=== PATIENT | male | born 1995 | race African-American/Black ===

== ENCOUNTER 2017-02-22 12:55 | Emergency (ER) | payer OTHER ==
[~2017-02-22] VITALS: Ht 172.7 cm; Wt 72.6 kg
[2017-02-22 13:05] VITALS: BP 136/66
[2017-02-22] MEDS ORDERED: IV NORMAL SALINE 1000ML BAG 1,000 ML IV ONE (13:30)
[2017-02-22] MEDS ORDERED: ONDANSETRON PF 4 MG/2 ML VIAL. IV ONE (13:30)
--- NOTE | 2017-02-22 14:18 | RAD ---
Portable AP upright view CXR: Clinical indications: Chest pain today. Comparison: August 17, 2016 Findings: No acute lung infiltrate or pleural effusion or pulmonary edema or lung mass or pneumothorax is seen. The heart size, pulmonary vasculature, mediastinum and both darcy are unremarkable. Impression: No acute radiographic abnormality is seen.
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
[2017-02-22 14:46] LABS: BASO # 0.1 x10^3/uL (0.0-0.2); BASO % 0 % (0-3); EOS % 0 % (0-3); HEMATOCRIT 51.6 % (39.0-53.0); HEMOGLOBIN 17.3 g/dL (13.0-17.5); LYMPH # 1.2 x10^3/uL (1.0-4.8); LYMPH % 6 % (24-48); MEAN CORPUSCULAR HEMOGLOBIN 31 pg (25-35); MEAN CORPUSCULAR HGB CONC 34 g/dL (31-37); MEAN CORPUSCULAR VOLUME 92 fL (79-100); MONO % 5 % (0-9); NEUT % 89 % (31-73); PLATELET COUNT 268 x10^3/uL (140-400); RED BLOOD COUNT 5.61 x10^6/uL (4.30-5.70); RED CELL DISTRIBUTION WIDTH 13.1 % (11.5-14.5)
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
[2017-02-22] MEDS ORDERED: CLON0.5T3 PO (15:17)
[2017-02-22] MEDS ORDERED: TRAZ50TA15 PO (15:17)
[2017-02-22 15:20] LABS: CALCIUM 10.2 mg/dL (8.5-10.1); CREATININE 1.4 mg/dL (0.7-1.3); GFR 76.7; POTASSIUM 3.3 mmol/L (3.5-5.1)
[2017-02-22 15:24] LABS: % BASOS 1 % (0-3)
[2017-02-22 15:25] LABS: PLT ESTIMATE ADEQUATE (ADEQUATE)
[2017-02-22 15:40] LABS: BARBITURATES NEG (NEG); BENZODIAZEPINES POS (NEG); CANNABINOIDS POS (NEG); COCAINE NEG (NEG); METHADONE NEG (NEG); OPIATES NEG (NEG); PHENCYCLIDINE NEG (NEG)
[2017-02-22 15:49] LABS: ETHANOL, URINE NEG (NEG)
[2017-02-22] MEDS ORDERED: POTASSIUM CHLORIDE 20 MEQ/15 ML ORAL LIQUID. PO ONE (16:30)
--- NOTE | 2017-02-23 12:57 | EKG ---
[facility] [address] [place] [address] Test Date: 2017-02-22 Test Time: 13:06:12 Pat Name: BRENNA OLIVEIRA Department: Room: Gender: Automotive General Sales Manager: : 1995 Requested By: AJ TALLEY Order Number: [id number] Reading MD: Measurements Intervals [place] Rate: 80 P: 38 CO: 150 QRS: 86 QRSD: 96 T: 46 QT: 364 QTc: 423 Interpretive Statements SINUS RHYTHM QRS(T) CONTOUR ABNORMALITY CONSIDER ANTEROLATERAL MYOCARDIAL DAMAGE POSSIBLY ABNORMAL ECG RI6.01 No previous ECG available for comparison
== END 2017-02-22 16:26 | disposition home or self-care (01) ==
LOC: ER 12:55
DX: S09.90XA Unspecified injury of head, initial encounter (principal); E87.6 Hypokalemia; F12.10 Cannabis abuse, uncomplicated; V89.2XXA Person injured in unspecified motor-vehicle accident, traffic, initial encounter; Y92.413 State road as the place of occurrence of the external cause; Y93.89 Activity, other specified; Y99.8 Other external cause status
CPT/HCPCS: 36415; 70450; 71010; 72125; 80048; 80305; 80320; 85007; 85027; 93005; 96361; 96374; 99285; J2405; J7030; G0480; G0481

== ENCOUNTER 2019-10-25 11:09 | Inpatient (IN) | payer OTHER ==
[~2019-10-25] VITALS: Ht 172.7 cm; Wt 75.4 kg
[~2019-10-25 11:09] MED LIST: CLON-77 PO; TRAZ-118 PO
[2019-10-25] MEDS ORDERED: MORPHINE SULFATE 10 MG/ML VIAL. IV STA ×2 (11:28→14:05)
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
[2019-10-25 11:50] LABS: BASO % 0 % (0-3); EOS % 1 % (0-3); HEMOGLOBIN 14.8 g/dL (13.0-17.5); LYMPH # 1.2 x10^3/uL (1.0-4.8); LYMPH % 17 % (24-48); MEAN CORPUSCULAR HEMOGLOBIN 31 pg (25-35); MEAN CORPUSCULAR HGB CONC 34 g/dL (31-37); MEAN CORPUSCULAR VOLUME 93 fL (79-100); MONO % 14 % (0-9); NEUT # 4.8 x10^3/uL (1.8-7.7); NEUT % 69 % (31-73); PLATELET COUNT 201 x10^3/uL (140-400); RED BLOOD COUNT 4.74 x10^6/uL (4.30-5.70); RED CELL DISTRIBUTION WIDTH 13.3 % (11.5-14.5)
[2019-10-25 11:59] LABS: PROTHROMBIN TIME PATIENT 12.4 SEC (11.7-14.0)
[2019-10-25] MEDS ORDERED: ONDANSETRON PF 4 MG/2 ML VIAL. IV ONE (12:00)
[2019-10-25] MEDS ORDERED: IV NORMAL SALINE 1000ML BAG 1,000 ML IV ONE (12:00)
[2019-10-25 12:26] LABS: CALCIUM 8.9 mg/dL (8.5-10.1); CREATININE 2.4 mg/dL (0.7-1.3); GFR 40.1; POTASSIUM 4.2 mmol/L (3.5-5.1)
[2019-10-25 12:31] LABS: ALBUMIN 3.6 g/dL (3.4-5.0); ALBUMIN/GLOBULIN RATIO 1.1 (1.0-1.7); TOTAL BILIRUBIN 0.6 mg/dL (0.2-1.0)
[2019-10-25 12:59] LABS: BILIRUBIN,URINE NEGATIVE (NEG); CLARITY,URINE CLEAR; COLOR,URINE YELLOW; NITRITE,URINE NEGATIVE (NEG); PROTEIN,URINE 100 mg/dL (NEG-TRACE); UROBILINOGEN,URINE 0.2 mg/dL (0.2 mg/dL)
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
[2019-10-25 13:31] LABS: BACTERIA,URINE 0 /HPF (0-FEW); SQUAMOUS EPITHELIAL CELL,UR OCC /LPF
[2019-10-25 13:58] LABS: CREATININE ISTAT 2.5 mg/dL (0.5-1.4); HEMOGLOBIN ISTAT 13.9 g/dL (14-18); ION CA ISTAT 1.18 mmol/L (1.13-1.32)
[2019-10-25 14:11] LABS: BARBITURATES NEG (NEG); BENZODIAZEPINES NEG (NEG); CANNABINOIDS POS (NEG); COCAINE NEG (NEG); METHADONE NEG (NEG); OPIATES POS (NEG); PHENCYCLIDINE NEG (NEG)
[2019-10-25 14:17] LABS: AMPHETAMINE/METHAMPHETAMINE NEG (NEG)
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
[2019-10-25] MEDS ORDERED: IV NORMAL SALINE 1000ML BAG 1,000 ML IV STA (15:18)
[2019-10-25] MEDS: MORPHINE SULFATE 4 MG/ML VIAL. IV PRN ×2 (17:21→19:28)
[2019-10-25] MEDS: IV NORMAL SALINE 1000ML BAG 1,000 ML IV SCH (17:21)
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
[2019-10-25 18:35] VITALS: BP 137/76
[2019-10-25 19:20] VITALS: BP 120/83
[2019-10-25] MEDS: ONDANSETRON PF 4 MG/2 ML VIAL. IV PRN ×2 (19:28→21:39)
[2019-10-25 23:25] VITALS: BP 112/64
[2019-10-26] MEDS: IV NORMAL SALINE 1000ML BAG 1,000 ML IV SCH ×2 (01:00→01:18)
[2019-10-26 03:25] VITALS: BP 122/85
[2019-10-26 07:47] VITALS: BP 150/78
[2019-10-26] MEDS ORDERED: FLU VAX QS 2019-20 (36MOS+)/PF 0.5 ML SYRINGE. VAX IM ONE (09:00)
[2019-10-26] MEDS: HYDROcodone/APAP 5/325MG 1 TAB TABLET PO PRN (09:13)
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
[2019-10-26] MEDS: ONDANSETRON PF 4 MG/2 ML VIAL. IV PRN (09:40)
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
[2019-10-26 10:31] LABS: BASO % 0 % (0-3); EOS % 1 % (0-3); HEMATOCRIT 43.6 % (39.0-53.0); HEMOGLOBIN 14.4 g/dL (13.0-17.5); LYMPH # 0.9 x10^3/uL (1.0-4.8); LYMPH % 16 % (24-48); MEAN CORPUSCULAR HEMOGLOBIN 31 pg (25-35); MEAN CORPUSCULAR HGB CONC 33 g/dL (31-37); MEAN CORPUSCULAR VOLUME 94 fL (79-100); MONO # 0.8 x10^3/uL (0.0-1.1); MONO % 14 % (0-9); NEUT # 4.1 x10^3/uL (1.8-7.7); NEUT % 69 % (31-73); PLATELET COUNT 187 x10^3/uL (140-400); RED BLOOD COUNT 4.63 x10^6/uL (4.30-5.70); RED CELL DISTRIBUTION WIDTH 13.2 % (11.5-14.5); WHITE BLOOD COUNT 5.9 x10^3/uL (4.0-11.0)
[2019-10-26 11:01] LABS: ALBUMIN 3.3 g/dL (3.4-5.0); CALCIUM 8.7 mg/dL (8.5-10.1); CREATININE 2.7 mg/dL (0.7-1.3); POTASSIUM 4.3 mmol/L (3.5-5.1); TOTAL BILIRUBIN 0.5 mg/dL (0.2-1.0); TOTAL PROTEIN 6.6 g/dL (6.4-8.2)
[2019-10-26 11:20] VITALS: BP 125/79
[2019-10-26] MEDS: HYDROmorphone 2 MG/ML VIAL IV PRN ×3 (13:13→21:27)
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
[2019-10-26 15:09] VITALS: BP 139/87
[2019-10-26 19:36] VITALS: BP 127/83
[2019-10-26] MEDS: ONDANSETRON PF 4 MG/2 ML VIAL. IVP PRN (20:43)
[2019-10-26] MEDS: silver sulfADIAZINE 1% CREAM 400GM JAR. TP SCH (21:27)
[2019-10-26 23:41] VITALS: BP 133/83
[2019-10-27 03:25] VITALS: BP 106/61
[2019-10-27] MEDS: ONDANSETRON PF 4 MG/2 ML VIAL. IVP PRN (06:03)
[2019-10-27] MEDS: HYDROmorphone 2 MG/ML VIAL IV PRN ×2 (06:03→10:51)
[2019-10-27 06:45] LABS: CALCIUM 8.6 mg/dL (8.5-10.1); CREATININE 2.5 mg/dL (0.7-1.3); GFR 38.3; POTASSIUM 3.9 mmol/L (3.5-5.1)
[2019-10-27 07:57] VITALS: BP 127/84
[2019-10-27] MEDS: silver sulfADIAZINE 1% CREAM 400GM JAR. TP SCH (09:37)
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
[2019-10-27 11:59] VITALS: BP 127/70
[2019-10-27] MEDS ORDERED: FLU VAX QS 2019-20 (36MOS+)/PF 0.5 ML SYRINGE. VAX IM ONE (14:15)
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
[2019-10-27] MEDS ORDERED: SILV20CR14 TP (16:14)
[2019-10-27] MEDS ORDERED: ACET325T9 PO (16:14)
--- NOTE | 2019-10-27 16:16 | DISCH ---
DISCHARGE INSTRUCTIONS Condition on Discharge Condition on Discharge: Stable Activity After Discharge Activity Instructions for Disc: Activity as tolerated Driving Instructions after Dis: Do not drive Diet after Discharge Diet after Discharge: Regular Liquid Texture: Thin Liquid Checks after Discharge Checks after discharge: Check blood press - daily Contacting the [facility] after DC Call your doctor for: If your condition worsens Warfarin Follow-Up Warfarin Follow UP: SEE PCP BRIAN STOVER MD Oct 27, 2019 16:16
[2019-10-27] MEDS: HYDROcodone/APAP 5/325MG 1 TAB TABLET PO PRN (17:03)
--- NOTE | 2019-10-27 17:18 | NUR ---
Pt discharged to home with family. Discussed discharge instructions with pt and family. Verbalized understanding.
== END 2019-10-27 17:16 | disposition home or self-care (01) | DRG 155 ==
LOC: ER 11:09 → 6 SOUTH 15:27
PROVIDERS: ADMIT Internal Medicine; ATTEND Internal Medicine
DX: S02.2XXA Fracture of nasal bones, initial encounter for closed fracture (principal); N17.9 Acute kidney failure, unspecified; H11.30 Conjunctival hemorrhage, unspecified eye; Y04.0XXA Assault by unarmed brawl or fight, initial encounter; Y93.89 Activity, other specified; Y92.89 Other specified places as the place of occurrence of the external cause; Y99.8 Other external cause status; Z82.49 Family history of ischemic heart disease and other diseases of the circulatory system
CPT/HCPCS: 36415; 70450; 70486; 71250; 72125; 74176; 80047; 80048; 80053; 80307; 81001; 82550; 85025; 85610; 85730; 86850; 86900; 86901; 90471; 90686; 96361; 96374; 96375; 96376; J1170; J2270; J2405; J7030; 99285-25; G0378

== ENCOUNTER 2020-04-25 16:51 | Emergency (ER) | payer SELFPAY ==
[~2020-04-25] VITALS: Ht 172.7 cm; Wt 72.7 kg
[~2020-04-25 16:51] MED LIST changes: +ACET325T9 PO; +SILV20CR14 TP
[2020-04-25 17:05] VITALS: BP 142/81
[2020-04-25] MEDS ORDERED: DIPH,PERTUSS(ACELL),TET VAC/PF 0.5 ML SYRINGE. VAX IM ONE (17:45)
[2020-04-25] MEDS ORDERED: LIDOCAINE 1%/EPI 1:100,000 20 ML VIAL. SQ ONE (17:45)
[2020-04-25] MEDS ORDERED: CEPH500C PO (21:10)
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
== END 2020-04-25 21:15 | disposition home or self-care (01) ==
LOC: ER 16:51
DX: S41.122A Laceration with foreign body of left upper arm, initial encounter (principal); Y28.8XXA Contact with other sharp object, undetermined intent, initial encounter; Y93.89 Activity, other specified; Y92.89 Other specified places as the place of occurrence of the external cause; Y99.8 Other external cause status
CPT/HCPCS: 12002; 90471; 90715; 99283; J3490